=== PATIENT | female | born 1995 | race African-American/Black ===

== ENCOUNTER 2017-01-05 21:52 | Emergency (ER) | payer MEDICAID ==
[~2017-01-05] VITALS: Ht 170.2 cm; Wt 86.0 kg
[~2017-01-05 21:52] MED LIST: ZOFR4TAB3 SL
[2017-01-05 21:53] VITALS: BP 128/80; PULSE 86; RESP 14; TEMP 97.8; O2SAT 100
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
== END 2017-01-06 00:12 | disposition left against medical advice (07) ==
LOC: NEPB 21:52
DX: M54.9 Dorsalgia, unspecified (principal)
CPT/HCPCS: 99281

== ENCOUNTER 2017-05-16 08:12 | Emergency (ER) | payer MEDICAID ==
[~2017-05-16] VITALS: Ht 172.7 cm; Wt 87.0 kg
[2017-05-16 08:14] VITALS: BP 128/80; PULSE 88; RESP 20; TEMP 98.6; O2SAT 100
[2017-05-16] MEDS ORDERED: SODIUM CHLOR 0.9% 1000 ML INJ 1,000 ML IV SCH (08:39)
--- NOTE | 2017-05-16 08:42 | PD ---
HPI Chief Complaint: GI Complaint Time Seen by Provider: 08:39 Travel History International Travel<30 days: No Contact w/Intl Traveler<30days: No Traveled to known affect area: No History of Present Illness HPI 21-year-old female patient presents to the ER today for 3 days history of nausea , and lower abdominal pains. She states this started on its own and she has not been vomiting or having any diarrhea. She denies any fevers, coughing, chest pains, or any other symptoms. She denies any urinary symptoms or vaginal discharge. Modifying Factors: None Associated Signs & Symptoms: Nausea, lower abdominal discomfort Risk Factors: None PFSH Past Medical History Medical History: Denies Significant Hx Diminished Hearing: No Tetanus Vaccination: < 5 Years ?: Not LMP: 05/14/17 Past Surgical History Surgical History: No Previous Surgery Social History Alcohol Use: Yes Tobacco Use: No Substance Use: No Allergies-Medications (Allergen,Severity, Reaction): Coded Allergies: No Known Allergies (Unverified , 05/16/17) Reported Meds & Prescriptions Reported Meds & Active Scripts Active Zofran ODT (Ondansetron HCl) 4 Mg Tab 4 Mg SL Q6H PRN FOR NAUSEA/VOMITING Review of Systems Except as stated in HPI: all other systems reviewed are Neg Physical Exam Narrative GENERAL: Well-developed young -[place] female patient in mild distress. Awake and oriented 3. SKIN: Focused skin assessment warm/dry. HEAD: Atraumatic. Normocephalic. EYES: Pupils equal and round. No scleral icterus. No injection or drainage. ENT: No nasal bleeding or discharge. Mucous membranes pink and moist. NECK: Trachea midline. No JVD. CARDIOVASCULAR: Regular rate and rhythm. No murmur appreciated. RESPIRATORY: No accessory muscle use. Clear to auscultation. Breath sounds equal bilaterally. GASTROINTESTINAL: Abdomen soft, mild suprapubic tenderness without guarding or rebound, nondistended. Hepatic and splenic margins not palpable. GENITOURINARY: Normal external genitalia without lesions or erythema. Vaginal vault with with dark blood but no significant drainage. Cervical os was closed without drainage. No cervical motion tenderness. Uterus nontender and nonenlarged. Bilateral adnexa nontender without masses. MUSCULOSKELETAL: No obvious deformities. No clubbing. No cyanosis. No edema. NEUROLOGICAL: Awake and alert. No obvious cranial nerve deficits. Motor grossly within normal limits. Normal speech. PSYCHIATRIC: Appropriate mood and affect; insight and judgment normal. Data Data Last Documented VS Vital Signs Date Time Temp Pulse Resp B/P Pulse Ox O2 Delivery O2 Flow Rate FiO2 05/16/17 08:14 98.6 88 20 128/80 100 Room Air Orders Complete Blood Count With Diff (05/16/17 08:39) Comprehensive Metabolic Panel (05/16/17 08:39) Lipase (05/16/17 08:39) Urinalysis - C+S If Indicated (05/16/17 08:39) Iv Access Insert/Monitor (05/16/17 08:39) Ecg Monitoring (05/16/17 08:39) Oximetry (05/16/17 08:39) Ondansetron Inj (Zofran Inj) (05/16/17 08:45) Sodium Chlor 0.9% 1000 Ml Inj (Ns 1000 M (05/16/17 08:39) Sodium Chloride 0.9% Flush (Ns Flush) (05/16/17 08:45) Ed Urine Pregnancytest Poc (05/16/17 08:39) Gc And Chlamydia Pcr (05/16/17 09:50) Wet Prep Profile (05/16/17 09:50) Labs Laboratory Tests Test 05/16/17 08:45 White Blood Count 7.6 TH/MM3 Red Blood Count 4.06 MIL/MM3 Hemoglobin 12.6 GM/DL Hematocrit 36.5 % Mean Corpuscular Volume 89.8 FL Mean Corpuscular Hemoglobin 30.9 PG Mean Corpuscular Hemoglobin 34.4 % Concent Red Cell Distribution Width 12.7 % Platelet Count 319 TH/MM3 Mean Platelet Volume 9.2 FL Neutrophils (%) (Auto) 80.7 % Lymphocytes (%) (Auto) 10.3 % Monocytes (%) (Auto) 8.3 % Eosinophils (%) (Auto) 0.5 % Basophils (%) (Auto) 0.2 % Neutrophils # (Auto) 6.2 TH/MM3 Lymphocytes # (Auto) 0.8 TH/MM3 Monocytes # (Auto) 0.6 TH/MM3 Eosinophils # (Auto) 0.0 TH/MM3 Basophils # (Auto) 0.0 TH/MM3 CBC Comment DIFF FINAL Differential Comment Urine Color YELLOW Urine Turbidity CLEAR Urine pH 6.5 Urine Specific [place] 1.038 Urine Protein TRACE mg/dL Urine Glucose (UA) NEG mg/dL Urine Ketones NEG mg/dL Urine Occult Blood MOD Urine Nitrite NEG Urine Bilirubin NEG Urine Urobilinogen 2.0 MG/DL Urine Leukocyte Esterase NEG Urine RBC 6 /hpf Urine WBC 1 /hpf Urine Squamous Epithelial 1 /hpf Cells Urine Mucus FEW /lpf Microscopic Urinalysis Comment CULT NOT INDICATED Sodium Level 137 MEQ/L Potassium Level 3.5 MEQ/L Chloride Level 105 MEQ/L Carbon Dioxide Level 27.0 MEQ/L Anion Gap 5 MEQ/L Blood Urea Nitrogen 14 MG/DL Creatinine 0.77 MG/DL Estimat Glomerular Filtration 116 ML/MIN Rate Random Glucose 87 MG/DL Calcium Level 8.6 MG/DL Total Bilirubin 0.8 MG/DL Aspartate Amino Transf 16 U/L (AST/SGOT) Alanine Aminotransferase 16 U/L (ALT/SGPT) Alkaline Phosphatase 87 U/L Total Protein 7.4 GM/DL Albumin 3.8 GM/DL Lipase 68 U/L [facility] Medical Decision Making Medical Screen Exam Complete: Yes Emergency Medical Condition: Yes Medical Record Reviewed: Yes Interpretation(s) Laboratory Tests Test 05/16/17 08:45 Neutrophils (%) (Auto) 80.7 % (16.0-70.0) Monocytes (%) (Auto) 8.3 % (0.0-8.0) Lymphocytes # (Auto) 0.8 TH/MM3 (1.0-4.8) Urine Specific [place] 1.038 (1.002-1.035) Urine Occult Blood MOD (NEG) Urine RBC 6 /hpf (0-3) Urine Mucus FEW /lpf (OCC) Lipase 68 U/L (73-393) Differential Diagnosis Nausea, lower abdominal discomfortUTI versus gastroenteritis versus dehydration versus metabolic issues versus Narrative Course Abdomen is benign and I am not suspecting acute intra-abdominal process. Lab work shows no significant leukocytosis. Her UA shows no signs of UTI. She is not . Pelvic exam shows that she is in her menses but is otherwise unremarkable for any signs of PID or cervicitis. Cultures were sent as precaution. At this point, my plan would be to release the patient with follow- up to primary care physician. We will give her symptomatic relief for the discomfort. Return for any worsening in symptoms as necessary. The plan has been discussed with her and she states understanding. Diagnosis Primary Impression: Gastroenteritis Additional Impression: Dysmenorrhea Med/Other Pt SpecificInfo: Prescription(s) given Scripts Ondansetron Odt (Zofran Odt)4 Mg Tab4 Mg SL Q6HR PRN (Nausea/Vomiting) #7 TAB Ref 0 Prov:Syed Tolliver MD 05/16/17 Ibuprofen (Motrin Ib)200 Mg [id number] Mg PO QID PRN (PAIN SCALE 1 TO 10) #20 Prov:Syed Tolliver MD 05/16/17 Disposition: 01 DISCHARGE HOME Condition: Stable Syed Tolliver MD May 16, 2017 08:42
[2017-05-16] MEDS ORDERED: SODIUM CHLORIDE 0.9% FLUSH 10 ML FLUSH IV FLUSH PRN (08:45)
[2017-05-16] MEDS ORDERED: ONDANSETRON HCL 4 MG/2 ML VIAL IVP ONE (08:45)
[2017-05-16 09:17] LABS: AUTOMATED NEUTROPHIL # 6.2 TH/MM3 (1.8-7.7); BASOPHIL % 0.2 % (0.0-2.0); EOSINOPHIL % 0.5 % (0.0-4.0); HEMATOCRIT 36.5 % (35.0-46.0); HEMO FLAGS DIFF FINAL; LYMPH % 10.3 % (9.0-44.0); LYMPHOCYTE # 0.8 TH/MM3 (1.0-4.8); MEAN CELL VOLUME 89.8 FL (80.0-100.0); MEAN CORPUSCULAR HEMOGLOBIN 30.9 PG (27.0-34.0); MEAN CORPUSCULAR HGB CONC 34.4 % (32.0-36.0); MONO % 8.3 % (0.0-8.0); NEUT % 80.7 % (16.0-70.0); PLATELET COUNT 319 TH/MM3 (150-450); RED BLOOD COUNT 4.06 MIL/MM3 (4.00-5.30); RED CELL DISTRIBUTION WIDTH 12.7 % (11.6-17.2); WHITE BLOOD COUNT 7.6 TH/MM3 (4.0-11.0)
[2017-05-16 09:26] LABS: BLOOD, URINE MOD (NEG); COMMENT (UR) CULT NOT INDICATED; CULTURE IF INDICATED CULT NOT INDICATED; GLUCOSE,URINE NEG (NEG); KETONE, URINE NEG (NEG); MUCUS URINE FEW /lpf (OCC); NITRITE,URINE NEG (NEG); PH, URINE 6.5 (5.0-8.5); SQUAMOUS EPITHELIAL CELL URINE 1 /hpf (0-5); URINE COLOR YELLOW (YELLW/STRAW)
[2017-05-16 09:39] LABS: ANION GAP 5 MEQ/L (5-15); AST (GOT) 16 U/L (16-38); BLOOD UREA NITROGEN 14 MG/DL (7-18); CHLORIDE 105 MEQ/L (98-107); GLOMERULAR FILTRATION RATE 116 ML/MIN (>89); POTASSIUM 3.5 MEQ/L (3.5-5.1); SODIUM (NA) 137 MEQ/L (136-145)
[2017-05-16 09:40] LABS: ALT (GPT) 16 U/L (9-42)
[2017-05-16 09:42] LABS: ALKALINE PHOSPHATASE 87 U/L (45-117); TOTAL BILIRUBIN ADULT 0.8 MG/DL (0.2-1.0)
[2017-05-16 10:00] VITALS: BP 116/65
[2017-05-16] MEDS ORDERED: IBUP-1129 PO (10:07)
[2017-05-16] MEDS ORDERED: ZOFR4TAB3 SL (10:07)
[2017-05-16 14:11] LABS: CHLAMYDIA PCR NOT DETECTED (NOT DETECT); NEISSERIA PCR NOT DETECTED (NOT DETECT)
== END 2017-05-16 11:30 | disposition home or self-care (01) ==
LOC: NEPE 08:12
DX: K52.9 Noninfective gastroenteritis and colitis, unspecified (principal); N94.6 Dysmenorrhea, unspecified
CPT/HCPCS: 80053; 81001; 83690; 84703; 85025; 87210; 87491; 87591; 96361; 96374; 99284; J2405; J7030

== ENCOUNTER 2017-07-24 22:59 | Emergency (ER) | payer SELFPAY ==
[~2017-07-24] VITALS: Ht 170.2 cm; Wt 90.0 kg
[~2017-07-24 22:59] MED LIST changes: +IBUP-1129 PO
[2017-07-24 23:02] VITALS: BP 138/84; PULSE 79; RESP 16; TEMP 98.8; O2SAT 99
[2017-07-24] MEDS ORDERED: SODIUM CHLORIDE 0.9% FLUSH 10 ML FLUSH IVF PRN (23:45)
--- NOTE | 2017-07-25 00:13 | PD ---
HPI Chief Complaint: Chest Pain Time Seen by Provider: 23:39 Travel History International Travel<30 days: No Contact w/Intl Traveler<30days: No Traveled to known affect area: No History of Present Illness HPI Patient is a 22-year-old female presenting to the emergency room for evaluation of left upper chest pain. Patient states this started sometime today. She states the pain is a 7 out of 10. She reports that when she lifts up her left breast the pain increases. She denies any shortness of breath, nausea, vomiting , abdominal pain, vaginal bleeding. She reports her last menstrual cycle was June 17. She states that she took 2 tests over the last few days and they were positive. She has no related complaints. She denies any family history for early heart disease. [facility] Past Medical History Medical History: Denies Significant Hx Diminished Hearing: No Immunizations Current: Yes ?: LMP: MAY 2017 Family History Family History: Negative Social History Alcohol Use: Yes ([facility]) Tobacco Use: No Substance Use: No Allergies-Medications (Allergen,Severity, Reaction): Coded Allergies: No Known Allergies (Unverified , 07/24/17) Reported Meds & Prescriptions Reported Meds & Active Scripts Active No Active Prescriptions or Reported Medications Review of Systems Except as stated in HPI: all other systems reviewed are Neg General / Constitutional: No: Fever, Chills HENT: No: Headaches Cardiovascular: Positive: Chest Pain or Discomfort, No: Dyspnea on exertion Respiratory: No: Shortness of Breath Gastrointestinal: No: Nausea, Vomiting, Abdominal Pain Musculoskeletal: Positive: Myalgias Neurologic: No: Weakness, Dizziness, Syncope Physical Exam Narrative GENERAL: Well-developed, well-nourished, alert female. Resting comfortably in no acute distress. SKIN: Warm and dry. HEAD: Atraumatic. Normocephalic. EYES: Pupils equal and round. No scleral icterus. No injection or drainage. ENT: No nasal bleeding or discharge. Mucous membranes pink and moist. NECK: Trachea midline. No JVD. CARDIOVASCULAR: Regular rate and rhythm. RESPIRATORY: No accessory muscle use. Clear to auscultation. Breath sounds equal bilaterally. GASTROINTESTINAL: Abdomen soft, non-tender, nondistended. Hepatic and splenic margins not palpable. MUSCULOSKELETAL: Extremities without clubbing, cyanosis, or edema. No obvious deformities. NEUROLOGICAL: Awake and alert. No obvious cranial nerve deficits. Motor grossly within normal limits. Five out of 5 muscle strength in the arms and legs. Normal speech. PSYCHIATRIC: Appropriate mood and affect; insight and judgment normal. Data Data Last Documented VS Vital Signs Date Time Temp Pulse Resp B/P (MAP) Pulse Ox O2 Delivery O2 Flow Rate FiO2 07/24/17 23:02 98.8 79 16 138/84 (102) 99 Room Air Orders Orders Electrocardiogram (07/24/17 23:38) Ckmb (Isoenzyme) Profile (07/24/17 23:38) Complete Blood Count With Diff (07/24/17 23:38) Comprehensive Metabolic Panel (07/24/17 23:38) Magnesium (Mg) (07/24/17 23:38) Prothrombin Time / Inr (Pt) (07/24/17 23:38) Act Partial Throm Time (Ptt) (07/24/17 23:38) Troponin I (07/24/17 23:38) Ecg Monitoring (07/24/17 23:38) Bilateral Bp Monitoring (07/24/17 23:38) Iv Access Insert/Monitor (07/24/17 23:38) Oximetry (07/24/17 23:38) Sodium Chloride 0.9% Flush (Ns Flush) (07/24/17 23:45) CKMB (07/25/17 00:10) CKMB% (07/25/17 00:10) Labs Laboratory Tests Test 07/25/17 00:10 White Blood Count 10.9 TH/MM3 Red Blood Count 3.81 MIL/MM3 Hemoglobin 11.4 GM/DL Hematocrit 33.8 % Mean Corpuscular Volume 88.5 FL Mean Corpuscular Hemoglobin 30.0 PG Mean Corpuscular Hemoglobin Concent 33.9 % Red Cell Distribution Width 12.6 % Platelet Count 418 TH/MM3 Mean Platelet Volume 8.5 FL Neutrophils (%) (Auto) 63.8 % Lymphocytes (%) (Auto) 27.7 % Monocytes (%) (Auto) 7.3 % Eosinophils (%) (Auto) 0.7 % Basophils (%) (Auto) 0.5 % Neutrophils # (Auto) 7.0 TH/MM3 Lymphocytes # (Auto) 3.0 TH/MM3 Monocytes # (Auto) 0.8 TH/MM3 Eosinophils # (Auto) 0.1 TH/MM3 Basophils # (Auto) 0.1 TH/MM3 CBC Comment DIFF FINAL Differential Comment Prothrombin Time 10.4 SEC Prothromb Time International Ratio 0.9 RATIO Activated Partial Thromboplast Time 27.8 SEC Blood Urea Nitrogen 5 MG/DL Creatinine 0.67 MG/DL Random Glucose 85 MG/DL Total Protein 7.4 GM/DL Albumin 3.8 GM/DL Calcium Level 8.9 MG/DL Magnesium Level 2.0 MG/DL Alkaline Phosphatase 89 U/L Aspartate Amino Transf (AST/SGOT) 11 U/L Alanine Aminotransferase (ALT/SGPT) 16 U/L Total Bilirubin 0.4 MG/DL Sodium Level 136 MEQ/L Potassium Level 3.7 MEQ/L Chloride Level 105 MEQ/L Carbon Dioxide Level 24.4 MEQ/L Anion Gap 7 MEQ/L Estimat Glomerular Filtration Rate 134 ML/MIN Total Creatine Kinase 115 U/L Creatine Kinase MB 0.7 NG/ML Troponin I LESS THAN 0.02 NG/ML MDM Medical Decision Making Medical Screen Exam Complete: Yes Emergency Medical Condition: Yes Interpretation(s) Laboratory Tests Test 07/25/17 00:10 White Blood Count 10.9 TH/MM3 Red Blood Count 3.81 MIL/MM3 Hemoglobin 11.4 GM/DL Hematocrit 33.8 % Mean Corpuscular Volume 88.5 FL Mean Corpuscular Hemoglobin 30.0 PG Mean Corpuscular Hemoglobin Concent 33.9 % Red Cell Distribution Width 12.6 % Platelet Count 418 TH/MM3 Mean Platelet Volume 8.5 FL Neutrophils (%) (Auto) 63.8 % Lymphocytes (%) (Auto) 27.7 % Monocytes (%) (Auto) 7.3 % Eosinophils (%) (Auto) 0.7 % Basophils (%) (Auto) 0.5 % Neutrophils # (Auto) 7.0 TH/MM3 Lymphocytes # (Auto) 3.0 TH/MM3 Monocytes # (Auto) 0.8 TH/MM3 Eosinophils # (Auto) 0.1 TH/MM3 Basophils # (Auto) 0.1 TH/MM3 CBC Comment DIFF FINAL Differential Comment Prothrombin Time 10.4 SEC Prothromb Time International Ratio 0.9 RATIO Activated Partial Thromboplast Time 27.8 SEC Blood Urea Nitrogen 5 MG/DL Creatinine 0.67 MG/DL Random Glucose 85 MG/DL Total Protein 7.4 GM/DL Albumin 3.8 GM/DL Calcium Level 8.9 MG/DL Magnesium Level 2.0 MG/DL Alkaline Phosphatase 89 U/L Aspartate Amino Transf (AST/SGOT) 11 U/L Alanine Aminotransferase (ALT/SGPT) 16 U/L Total Bilirubin 0.4 MG/DL Sodium Level 136 MEQ/L Potassium Level 3.7 MEQ/L Chloride Level 105 MEQ/L Carbon Dioxide Level 24.4 MEQ/L Anion Gap 7 MEQ/L Estimat Glomerular Filtration Rate 134 ML/MIN Total Creatine Kinase 115 U/L Creatine Kinase MB 0.7 NG/ML Troponin I LESS THAN 0.02 NG/ML Vital Signs Date Time Temp Pulse Resp B/P (MAP) Pulse Ox O2 Delivery O2 Flow Rate FiO2 07/24/17 23:02 98.8 79 16 138/84 (102) 99 Room Air Differential Diagnosis ACS versus pleurisy versus [place] versus less likely pulmonary embolism versus musculoskeletal strain versus other Narrative Course Patient is a 22-year-old female that presented to emergency department for evaluation of left upper chest wall pain that started earlier today. Patient has no cardiac risk factors, she does not smoke and denies any family history. Patient's vital signs are stable, labs ordered and pending. Initial EKG which was reviewed by my attending physician shows normal sinus rhythm. Chest x-ray was deferred since patient is in the early stages of . She has no related complaints at this time. Labs reviewed, no acute findings identified. Discussed with my attending physician, at this time due to lack of risk factors as well as negative workup, patient will be discharged home. She was encouraged to take acetaminophen as needed and as directed for pain. She was encouraged to follow-up with her primary doctor. She was encouraged to schedule an appointment with an coremaker pipe for care. She was advised to return to emergency department immediately for any new or worsening symptoms. Diagnosis Primary Impression: Chest wall pain Referrals: System Archive Analyst Primary Care Physician Patient Instructions: Chest Wall Pain (ED), General Instructions Additional Instructions: Follow-up with your primary doctor Take [id number] acetaminophen as needed and as directed for pain Return to emergency department for any new or worsening symptoms Med/Other Pt SpecificInfo: Prescription(s) given Scripts Vit-Iron Carbonyl ( Plus Iron 29-1 mg) 29 Mg Iron-1 Mg Tab 1 TAB PO DAILY for Nutritional Supplement, #30 TAB 0 Refills Prov: Mariah Koehler 07/25/17 Disposition: 01 DISCHARGE HOME Condition: Stable Rodo,Skylarmilla HARMON Jul 25, 2017 00:13
[2017-07-25 00:27] LABS: BASOPHIL # 0.1 TH/MM3 (0-0.2); BASOPHIL % 0.5 % (0.0-2.0); EOSINOPHIL # 0.1 TH/MM3 (0-0.4); EOSINOPHIL % 0.7 % (0.0-4.0); HEMATOCRIT 33.8 % (35.0-46.0); HEMO FLAGS DIFF FINAL; LYMPH % 27.7 % (9.0-44.0); MEAN CELL VOLUME 88.5 FL (80.0-100.0); MEAN CORPUSCULAR HGB CONC 33.9 % (32.0-36.0); MONO % 7.3 % (0.0-8.0); NEUT % 63.8 % (16.0-70.0); PLATELET COUNT 418 TH/MM3 (150-450); RED BLOOD COUNT 3.81 MIL/MM3 (4.00-5.30); RED CELL DISTRIBUTION WIDTH 12.6 % (11.6-17.2); WHITE BLOOD COUNT 10.9 TH/MM3 (4.0-11.0)
[2017-07-25 00:35] LABS: APTT (PATIENT) 27.8 SEC (24.3-30.1); INTERNATIONAL NORMALIZED RATIO 0.9 RATIO; PROTHROMBIN TIME - PATIENT 10.4 SEC (9.8-11.6)
[2017-07-25 00:47] LABS: ALT (GPT) 16 U/L (10-53); ANION GAP 7 MEQ/L (5-15); AST (GOT) 11 U/L (15-37); BICARBONATE 24.4 MEQ/L (21.0-32.0); BLOOD UREA NITROGEN 5 MG/DL (7-18); CHLORIDE 105 MEQ/L (98-107); GLOMERULAR FILTRATION RATE 134 ML/MIN (>89); POTASSIUM 3.7 MEQ/L (3.5-5.1); SODIUM (NA) 136 MEQ/L (136-145)
[2017-07-25 00:52] LABS: ALKALINE PHOSPHATASE 89 U/L (45-117); CREATINE KINASE 115 U/L (26-192); TOTAL BILIRUBIN ADULT 0.4 MG/DL (0.2-1.0)
[2017-07-25 01:05] LABS: CKMB 0.7 NG/ML (0.5-3.6)
[2017-07-25] MEDS ORDERED: PREN29TA PO (01:11)
[2017-07-25 01:55] VITALS: RESP 20; O2SAT 100
[2017-07-25 02:01] VITALS: BP 113/60
--- NOTE | 2017-07-25 19:25 | EKG ---
Date Performed: 07/25/2017 Time Performed: 00:35:12 PTAGE: 22 years EKG: Sinus rhythm WITH SINUS ARRHYTHMIA NORMAL ECG INTERPRETATION BASED ON A DEFAULT AGE OF 41 YEARS NO PREVIOUS TRACING DOCTOR: Isaak Roque Interpretating Date/Time 07/25/2017 19:23:24
== END 2017-07-25 02:02 | disposition home or self-care (01) ==
LOC: NEPD 22:59
DX: R07.89 Other chest pain (principal); I49.8 Other specified cardiac arrhythmias
CPT/HCPCS: 80053; 82550; 82552; 83735; 84484; 85025; 85610; 85730; 93005; 99284

== ENCOUNTER 2017-08-13 20:41 | Emergency (ER) | payer MEDICAID ==
[~2017-08-13 20:41] MED LIST changes: -IBUP-1129 PO; +PREN29TA PO; -ZOFR4TAB3 SL
[2017-08-13 20:42] VITALS: BP 142/72; PULSE 86; RESP 15; TEMP 98.2; O2SAT 100
--- NOTE | 2017-08-13 21:14 | PD ---
HPI Chief Complaint: Abdominal Pain Time Seen by Provider: 21:10 Travel History International Travel<30 days: No Contact w/Intl Traveler<30days: No Traveled to known affect area: No History of Present Illness HPI 22-year-old female presents to the emergency department for complaint of left lower quadrant abdominal pain. Patient is noted symptoms since yesterday. Patient is 1 para 0 AB 0. Last menstrual period was June 13 and normal for her. Patient states she's been taking vitamins. Patient's had no fever or chills. Patient denies dysuria frequency urgency flank pain or hematuria. Patient's had no vaginal discharge or vaginal bleeding. No report of injury. Patient rates her pain 10 over 10 intensity. Patient has not yet established with a primary care provider or an [facility] TE[facility] for this . Patient denies any chronic medical history or surgeries. Patient took one-time dose of acetaminophen reportedly without relief. PFSH Past Medical History Narrative Medical Negative past medical history Ab0 LMP 06/13/17 no surgery; no tobacco use; nursing notes reviewed Medical History: Denies Significant Hx Diminished Hearing: No Immunizations Current: Yes Tetanus Vaccination: Unknown Influenza Vaccination: No ?: LMP: 06/13/17 Past Surgical History Surgical History: No Previous Surgery Social History Alcohol Use: Yes (OCC) Tobacco Use: No Substance Use: No Allergies-Medications (Allergen,Severity, Reaction): Coded Allergies: No Known Allergies (Unverified , 07/25/17) Reported Meds & Prescriptions Reported Meds & Active Scripts Active Plus Iron 29-1 mg ( Vit-Iron Carbonyl) 29 Mg Iron-1 Mg Tab 1 Tab PO DAILY Review of Systems Except as stated in HPI: all other systems reviewed are Neg General / Constitutional: No: Fever, Chills HENT: No: Congestion Cardiovascular: No: Chest Pain or Discomfort Respiratory: No: Shortness of Breath Gastrointestinal: Positive: Nausea, Abdominal Pain, No: Vomiting, Diarrhea Genitourinary: No: Urgency, Frequency, Dysuria, Hematuria, Pelvic Pain, Flank Pain, Discharge, Vaginal Bleeding Musculoskeletal: No: Myalgias, Arthralgias Skin: No Rash Neurologic: No: Weakness Psychiatric: No: Anxiety Hematologic/Lymphatic: No: Lymph Node Enlargement Physical Exam Narrative GENERAL: Well developed well-nourished female in acute distress respiratory distress SKIN: Warm and dry. HEAD: Normocephalic. EYES: No scleral icterus. No injection or drainage. NECK: Supple, trachea midline. No JVD or lymphadenopathy. CARDIOVASCULAR: Regular rate and rhythm without murmurs, gallops, or rubs. RESPIRATORY: Breath sounds equal bilaterally. No accessory muscle use. GASTROINTESTINAL: Abdomen soft, mild left lower quadrant tenderness to palpation without guarding or rebound, nondistended. Pelvic exam: Normal external exam no redness induration or lesions; speculum exam white mucous no blood no tissue no clots cervical os is closed; bimanual exam no cervical motion tenderness mild uterine enlargement no adnexal mass or tenderness MUSCULOSKELETAL: No cyanosis, or edema. BACK: Nontender without obvious deformity. No CVA tenderness. Data Data Last Documented VS Vital Signs Date Time Temp Pulse Resp B/P (MAP) Pulse Ox O2 Delivery O2 Flow Rate FiO2 08/14/17 01:50 08/13/17 20:42 98.2 86 15 100 Room Air Orders Orders Beta Hcg (Quant/Titer) (08/13/17 21:10) Complete Blood Count With Diff (08/13/17 21:10) Basic Metabolic Panel (Bmp) (08/13/17 21:10) Gc And Chlamydia Pcr (08/13/17 21:10) Complete Rh (08/13/17 21:10) Wet Prep Profile (08/13/17 21:10) Urinalysis - C+S If Indicated (08/13/17 21:10) Iv Access Insert/Monitor (08/13/17 21:10) Ed Urine Pregnancytest Poc (08/13/17 21:10) Us Pelvis Preg W Transvaginal (08/13/17 ) Acetaminophen (Tylenol) (08/14/17 00:00) Ed Discharge Order (08/14/17 01:48) Labs Laboratory Tests Test 08/13/17 21:15 08/13/17 21:20 08/13/17 21:40 Urine Color YELLOW Urine Turbidity HAZY Urine pH 7.5 Urine Specific [place] 1.018 Urine Protein TRACE mg/dL Urine Glucose (UA) NEG mg/dL Urine Ketones NEG mg/dL Urine Occult Blood NEG Urine Nitrite NEG Urine Bilirubin NEG Urine Urobilinogen 2.0 MG/DL Urine Leukocyte Esterase NEG Urine WBC 1 /hpf Urine Squamous Epithelial Cells 6 /hpf Urine Amorphous Sediment RARE Urine Bacteria RARE /hpf Urine Mucus FEW /lpf Microscopic Urinalysis Comment CULT NOT INDICATED White Blood Count 6.9 TH/MM3 Red Blood Count 3.76 MIL/MM3 Hemoglobin 11.4 GM/DL Hematocrit 33.6 % Mean Corpuscular Volume 89.2 FL Mean Corpuscular Hemoglobin 30.4 PG Mean Corpuscular Hemoglobin Concent 34.0 % Red Cell Distribution Width 12.6 % Platelet Count 330 TH/MM3 Mean Platelet Volume 8.9 FL Neutrophils (%) (Auto) 62.9 % Lymphocytes (%) (Auto) 18.8 % Monocytes (%) (Auto) 17.3 % Eosinophils (%) (Auto) 0.4 % Basophils (%) (Auto) 0.6 % Neutrophils # (Auto) 4.3 TH/MM3 Lymphocytes # (Auto) 1.3 TH/MM3 Monocytes # (Auto) 1.2 TH/MM3 Eosinophils # (Auto) 0.0 TH/MM3 Basophils # (Auto) 0.0 TH/MM3 CBC Comment DIFF FINAL Differential Comment Blood Urea Nitrogen 3 MG/DL Creatinine 0.65 MG/DL Random Glucose 76 MG/DL Calcium Level 8.7 MG/DL Sodium Level 135 MEQ/L Potassium Level 3.5 MEQ/L Chloride Level 103 MEQ/L Carbon Dioxide Level 25.4 MEQ/L Anion Gap 7 MEQ/L Estimat Glomerular Filtration Rate 139 ML/MIN Human Chorionic Gonadotropin, Quant 699715 MIU/ML Clue Cells (Wet Prep) NONE SEEN Vaginal Trichomonas (Wet Prep) NONE SEEN Vaginal Yeast (Wet Prep) NONE SEEN Chlamydia trachomatis DNA (PCR) NOT DETECTED Neisseria gonorrhoeae DNA (PCR) NOT DETECTED MDM Medical Decision Making Medical Screen Exam Complete: Yes Emergency Medical Condition: Yes Medical Record Reviewed: Yes Interpretation(s) O+ Urinalysis grossly within normal range CBC is automated differential values grossly within normal limits; hemoglobin 11.4 Metabolic panel within normal limits [id number] hCG positive Quantitative hCG 149,644 Ultrasound shows no evidence of ectopic shows intrauterine 9 weeks 1 day heartbeat 169 CBC & BMP Diagram 08/13/17 21:20 Calcium Level 8.7 Vital Signs Date Time Temp Pulse Resp B/P (MAP) Pulse Ox O2 Delivery O2 Flow Rate FiO2 08/13/17 20:42 98.2 86 15 142/72 (95) 100 Room Air Wet prepped: Negative Differential Diagnosis related pain, ectopic , UTI, ruptured ovarian cysts, atypical appendicitis, muscle skeletal pain, abdominal wall pain Narrative Course IV access obtained specimens collected and sent for resulting After obtaining verbal consent patient was placed supine and a curvilinear probe was placed over the lower abdomen by me; using transverse and sagittal views an intrauterine was identified with heart rate of 160. Patient is (O) positive quantitative hCG is 149,466 Pelvic/transvaginal ultrasound shows no evidence of ectopic and is consistent with intrauterine 9 weeks 1 day heart rate 169 Patient informed of lab results and ultrasound results and encouraged to continue vitamins take Tylenol as needed for minor pain and follow-up with [facility] TE[facility] and return to the emergency department for any concerns No work times one day Diagnosis Primary Impression: Qualified Codes: Z3A.09 - 9 weeks gestation of Additional Impression: Abdominal wall pain Referrals: [employer] Contact Printer call for appointment Patient Instructions: General Instructions Departure Forms: Tests/Procedures, Work Release Special Instructions: no work x 1 day Additional Instructions: Continue vitamins May take acetaminophen/Tylenol as often as every 4 hours as needed for pain greater than 5/10 intensity Increase fluid hydration Return to the emergency department for any concerns or change condition No work times one day Follow-up machinist general Disposition: 01 DISCHARGE HOME Condition: Stable Miranda Polanco MD Aug 13, 2017 21:14
[2017-08-13 21:57] LABS: AUTOMATED NEUTROPHIL # 4.3 TH/MM3 (1.8-7.7); BASOPHIL % 0.6 % (0.0-2.0); EOSINOPHIL % 0.4 % (0.0-4.0); HEMATOCRIT 33.6 % (35.0-46.0); HEMOGLOBIN 11.4 GM/DL (11.6-15.3); LYMPH % 18.8 % (9.0-44.0); LYMPHOCYTE # 1.3 TH/MM3 (1.0-4.8); MEAN CELL VOLUME 89.2 FL (80.0-100.0); MEAN CORPUSCULAR HEMOGLOBIN 30.4 PG (27.0-34.0); MEAN PLATELET VOLUME 8.9 FL (7.0-11.0); MONO % 17.3 % (0.0-8.0); MONOCYTE # 1.2 TH/MM3 (0-0.9); NEUT % 62.9 % (16.0-70.0); PLATELET COUNT 330 TH/MM3 (150-450); RED BLOOD COUNT 3.76 MIL/MM3 (4.00-5.30); RED CELL DISTRIBUTION WIDTH 12.6 % (11.6-17.2); WHITE BLOOD COUNT 6.9 TH/MM3 (4.0-11.0)
[2017-08-13 22:04] LABS: AMORPHOUS SEDIMENT, URINE RARE; BACTERIA, URINE RARE /hpf; BILIRUBIN, URINE NEG (NEG); BLOOD, URINE NEG (NEG); GLUCOSE,URINE NEG (NEG); KETONE, URINE NEG (NEG); MUCUS URINE FEW /lpf (OCC); NITRITE,URINE NEG (NEG); PH, URINE 7.5 (5.0-8.5); SQUAMOUS EPITHELIAL CELL URINE 6 /hpf (0-5); URINE COLOR YELLOW (YELLW/STRAW); URINE LEUKOCYTE ESTERASE NEG (NEG)
[2017-08-13 22:16] LABS: BICARBONATE 25.4 MEQ/L (21.0-32.0); CALCIUM 8.7 MG/DL (8.5-10.1); CREATININE 0.65 MG/DL (0.50-1.00)
--- NOTE | 2017-08-13 23:43 | RADRPT ---
EXAM DATE/TIME: 08/13/2017 23:07 [facility] COMPARISON: No previous studies available for comparison. INDICATIONS : Pelvic pain. LAB(S): Beta-hC MEDICAL HISTORY : . Alcohol use. SURGICAL HISTORY : None. ENCOUNTER: Initial ACUITY: 2 days PAIN SCORE: 5/10 LOCATION: Bilateral pelvis MEASUREMENTS: UTERUS: 10.0 x 7.1 x 6.0 cm ENDOMETRIAL STRIPE: >20 mm RIGHT OVARY: 3.4 x 2.9 x 2.3 cm LEFT OVARY: 2.3 x 2.1 x 1.7 cm FREE FLUID: No CROWN RUMP LENGTH: 2.4 = 9 WKS 1 DAYS FHR: 169 BPM FINDINGS: UTERUS: There is a single early intrauterine with small yolk sac. The crown-rump length corresponds to a 9 week one day menstrual age. A heart rate of 169 beats per minute was obtained. RIGHT OVARY: Ovary contains no mass or significant cystic lesion. LEFT OVARY: Ovary contains no mass or significant cystic lesion. MISCELLANEOUS: No free fluid. CONCLUSION: 1. Early intrauterine corresponding to a 9 week one day menstrual age. 2. The ovaries are unremarkable. Peter Sandhu MD on August 13, 2017 at 23:41 Board Certified Radiologist. This report was verified electronically.
[2017-08-14] MEDS ORDERED: ACETAMINOPHEN 325 MG TAB PO ONE
== END 2017-08-14 01:57 | disposition home or self-care (01) ==
LOC: NEPC 20:41
DX: O26.891 Other specified pregnancy related conditions, first trimester (principal); R10.2 Pelvic and perineal pain; Z3A.09 9 weeks gestation of pregnancy
CPT/HCPCS: 76801; 76817; 80048; 81001; 84702; 84703; 85025; 86901; 87210; 87491; 87591

== ENCOUNTER 2017-08-27 03:01 | Emergency (ER) | payer MEDICAID ==
[~2017-08-27] VITALS: Ht 170.2 cm; Wt 88.0 kg
[2017-08-27 03:04] VITALS: BP 128/83; PULSE 79; RESP 16; TEMP 98.6; O2SAT 100
--- NOTE | 2017-08-27 04:44 | PD ---
HPI Chief Complaint: Related Problem Time Seen by Provider: 04:23 Travel History International Travel<30 days: No Contact w/Intl Traveler<30days: No Traveled to known affect area: No History of Present Illness HPI 22yo F who is 10 weeks presents to the ED with c/o vaginal bleeding today. Denies any fever, chest pain, sob, n/v, abdominal pain, urinary complaints. PFSH Past Medical History Medical History: Denies Significant Hx Diminished Hearing: No Immunizations Current: Yes ?: Past Surgical History Surgical History: No Previous Surgery Social History Alcohol Use: No Tobacco Use: No Substance Use: No Allergies-Medications (Allergen,Severity, Reaction): Coded Allergies: No Known Allergies (Unverified Adverse Reaction, Unknown, 08/27/17) Reported Meds & Prescriptions Reported Meds & Active Scripts Active Plus Iron 29-1 mg ( Vit-Iron Carbonyl) 29 Mg Iron-1 Mg Tab 1 Tab PO DAILY Review of Systems Except as stated in HPI: all other systems reviewed are Neg Physical Exam Narrative GENERAL: 22yo F not in distress. SKIN: Focused skin assessment warm/dry. HEAD: Atraumatic. Normocephalic. EYES: Pupils equal and round. No scleral icterus. No injection or drainage. ENT: No nasal bleeding or discharge. Mucous membranes pink and moist. NECK: Trachea midline. No JVD. CARDIOVASCULAR: Regular rate and rhythm. No murmur appreciated. RESPIRATORY: No accessory muscle use. Clear to auscultation. Breath sounds equal bilaterally. GASTROINTESTINAL: Abdomen soft, non-tender, nondistended. PELVIC: No blood. Small amount of vaginal discharge. Cervical os closed. No CMT or adnexal tenderness bilaterally. MUSCULOSKELETAL: No obvious deformities. No clubbing. No cyanosis. No edema. NEUROLOGICAL: Awake and alert. No obvious cranial nerve deficits. Motor grossly within normal limits. Normal speech. PSYCHIATRIC: Appropriate mood and affect; insight and judgment normal. Data Data Last Documented VS Vital Signs Date Time Temp Pulse Resp B/P (MAP) Pulse Ox O2 Delivery O2 Flow Rate FiO2 08/27/17 07:00 72 15 120/75 (90) 100 Room Air 08/27/17 03:04 98.6 Orders Orders Complete Blood Count With Diff (08/27/17 04:40) Basic Metabolic Panel (Bmp) (08/27/17 04:40) Prothrombin Time / Inr (Pt) (08/27/17 04:40) Act Partial Throm Time (Ptt) (08/27/17 04:40) Beta Hcg (Quant/Titer) (08/27/17 04:40) Urinalysis - C+S If Indicated (08/27/17 04:40) Type And Screen (08/27/17 04:40) Gc And Chlamydia Pcr (08/27/17 06:35) Wet Prep Profile (08/27/17 06:35) Ed Urine Pregnancytest Poc (08/27/17 06:49) Labs Laboratory Tests Test 08/27/17 05:07 08/27/17 05:20 08/27/17 06:40 Urine Color YELLOW Urine Turbidity CLEAR Urine pH 6.0 Urine Specific [place] 1.016 Urine Protein NEG mg/dL Urine Glucose (UA) NEG mg/dL Urine Ketones NEG mg/dL Urine Occult Blood NEG Urine Nitrite NEG Urine Bilirubin NEG Urine Urobilinogen LESS THAN 2.0 MG/DL Urine Leukocyte Esterase NEG Urine WBC 1 /hpf Urine Squamous Epithelial Cells <1 /hpf Microscopic Urinalysis Comment CULT NOT INDICATED White Blood Count 10.3 TH/MM3 Red Blood Count 3.61 MIL/MM3 Hemoglobin 10.8 GM/DL Hematocrit 32.1 % Mean Corpuscular Volume 88.8 FL Mean Corpuscular Hemoglobin 30.0 PG Mean Corpuscular Hemoglobin Concent 33.8 % Red Cell Distribution Width 12.9 % Platelet Count 373 TH/MM3 Mean Platelet Volume 8.6 FL Neutrophils (%) (Auto) 65.8 % Lymphocytes (%) (Auto) 25.5 % Monocytes (%) (Auto) 7.5 % Eosinophils (%) (Auto) 1.0 % Basophils (%) (Auto) 0.2 % Neutrophils # (Auto) 6.8 TH/MM3 Lymphocytes # (Auto) 2.6 TH/MM3 Monocytes # (Auto) 0.8 TH/MM3 Eosinophils # (Auto) 0.1 TH/MM3 Basophils # (Auto) 0.0 TH/MM3 CBC Comment DIFF FINAL Differential Comment Prothrombin Time 10.0 SEC Prothromb Time International Ratio 0.9 RATIO Activated Partial Thromboplast Time 27.1 SEC Blood Urea Nitrogen 4 MG/DL Creatinine 0.50 MG/DL Random Glucose 81 MG/DL Calcium Level 8.3 MG/DL Sodium Level 138 MEQ/L Potassium Level 3.7 MEQ/L Chloride Level 106 MEQ/L Carbon Dioxide Level 23.7 MEQ/L Anion Gap 8 MEQ/L Estimat Glomerular Filtration Rate 188 ML/MIN Human Chorionic Gonadotropin, Quant 325836 MIU/ML Clue Cells (Wet Prep) PRESENT Vaginal Trichomonas (Wet Prep) NONE SEEN Vaginal Yeast (Wet Prep) NONE SEEN MDM Medical Decision Making Medical Screen Exam Complete: Yes Emergency Medical Condition: Yes Differential Diagnosis Threatened vs. subchorionic bleed Narrative Course 22yo F who is 10 weeks here with episode of vaginal bleeding today. Labs reviewed, no leukocytosis. H/H 10.8/32.1. bHCG [id number]. UA negative. Wet prep positive for clue cells. Will prescribe metronidazole. Pt is O positive, no rhogam needed. Bedside ultrasound showed +IUP with FHR 156 and movement. Pt has no abdominal pain. Pt is to follow up with OBGYN. Procedures Procedure Narrative Emergency Department Pelvic ultrasound was performed with patient consent. The curvilinear probe was used in the transverse and sagittal views within the suprapubic region revealing single intrauterine . heart rate was 156bpm. Diagnosis Primary Impression: Vaginal bleeding in Additional Impression: Bacterial vaginosis Patient Instructions: General Instructions Departure Forms: Tests/Procedures Additional Instructions: Please follow up with your OBGYN in 2-3 days. Return to the ED if symptoms worsen. Med/Other Pt SpecificInfo: Prescription(s) given Scripts Metronidazole (Metronidazole) 500 Mg Tab 500 MG PO BID for Infection for 7 Days, #14 TAB 0 Refills Prov: Krissy Courtney DO 08/27/17 Disposition: 01 DISCHARGE HOME Condition: Stable Krissy Courtney DO Aug 27, 2017 04:44
[2017-08-27 05:00] VITALS: BP 122/84; PULSE 70; RESP 15; O2SAT 100
[2017-08-27 05:58] LABS: AUTOMATED NEUTROPHIL # 6.8 TH/MM3 (1.8-7.7); BASOPHIL % 0.2 % (0.0-2.0); EOSINOPHIL # 0.1 TH/MM3 (0-0.4); HEMATOCRIT 32.1 % (35.0-46.0); HEMO FLAGS DIFF FINAL; LYMPH % 25.5 % (9.0-44.0); LYMPHOCYTE # 2.6 TH/MM3 (1.0-4.8); MEAN CELL VOLUME 88.8 FL (80.0-100.0); MEAN CORPUSCULAR HGB CONC 33.8 % (32.0-36.0); MONO % 7.5 % (0.0-8.0); NEUT % 65.8 % (16.0-70.0); PLATELET COUNT 373 TH/MM3 (150-450); RED BLOOD COUNT 3.61 MIL/MM3 (4.00-5.30); RED CELL DISTRIBUTION WIDTH 12.9 % (11.6-17.2); WHITE BLOOD COUNT 10.3 TH/MM3 (4.0-11.0)
[2017-08-27 06:00] VITALS: BP 112/58; PULSE 68; RESP 16; O2SAT 100
[2017-08-27 06:01] LABS: BLOOD, URINE NEG (NEG); COMMENT (UR) CULT NOT INDICATED; CULTURE IF INDICATED CULT NOT INDICATED; GLUCOSE,URINE NEG (NEG); KETONE, URINE NEG (NEG); NITRITE,URINE NEG (NEG); SQUAMOUS EPITHELIAL CELL URINE <1 /hpf (0-5); URINE COLOR YELLOW (YELLW/STRAW)
[2017-08-27 06:09] LABS: APTT (PATIENT) 27.1 SEC (24.3-30.1); INTERNATIONAL NORMALIZED RATIO 0.9 RATIO
[2017-08-27 06:23] LABS: BICARBONATE 23.7 MEQ/L (21.0-32.0); POTASSIUM 3.7 MEQ/L (3.5-5.1)
[2017-08-27 07:00] VITALS: BP 120/75; PULSE 72; RESP 15; O2SAT 100
[2017-08-27] MEDS ORDERED: METR1TAB76 PO (07:27)
[2017-08-27 12:30] LABS: CHLAMYDIA PCR NOT DETECTED (NOT DETECT); NEISSERIA PCR NOT DETECTED (NOT DETECT)
== END 2017-08-27 08:53 | disposition home or self-care (01) ==
LOC: NEPE 03:01
DX: O20.9 Hemorrhage in early pregnancy, unspecified (principal); O23.591 Infection of other part of genital tract in pregnancy, first trimester; Z3A.10 10 weeks gestation of pregnancy
CPT/HCPCS: 80048; 81001; 84702; 84703; 85025; 85610; 85730; 86850; 86900; 86901; 87210; 87491; 87591; 99283

== ENCOUNTER 2017-12-17 09:40 | Emergency (ER) | payer MEDICAID ==
[~2017-12-17 09:40] MED LIST changes: +METR1TAB76 PO
[2017-12-17 09:41] VITALS: BP 134/85; PULSE 75; RESP 16; TEMP 98.4; O2SAT 100
--- NOTE | 2017-12-17 11:00 | PD ---
HPI Chief Complaint Complaining of throwing up blood today Date Seen: Dec 17, 2017 Time Seen: 10:52 Travel History International Travel<30 Days: No Contact w/Intl Traveler<30Days: No Known Affected Area: No History of Present Illness HPI Patient is 22-year-old black female at 26 weeks he goes to the [place] [facility] and presents complaining of vomiting today and vomiting up blood with that, it was not a lot of blood she did notice that in the emesis. Patient had this about a week ago and saw her [place] doctors but nothing was really done for the problem and it went away, today has come back she had some nausea threw up and noticed blood in the toilet. Patient has no history of this is an ongoing problem she does not have a lot of nausea and vomiting with she has not had a problem with that throughout she takes no medication no antiacids no antinausea medications. She has no history in the family or herself of a bleeding problem or GI disease Crohn's disease or ulcers. heart tones are reactive for 27 weeks and there are no contractions Weeks Gestation: 26 Para: 0 : 1 History Social History Alcohol Use: No Tobacco Use: No Substance Abuse: No Allergies-Medications (Allergen,Severity, Reaction): Coded Allergies: No Known Allergies (Unverified Adverse Reaction, Unknown, 08/27/17) Home Meds Active Scripts Metronidazole (Metronidazole) 500 Mg Tab, 500 MG PO BID for Infection for 7 Days , #14 TAB 0 Refills Prov:Krissy Courtney DO 08/27/17 Vit-Iron Carbonyl ( Plus Iron 29-1 mg) 29 Mg Iron-1 Mg Tab, 1 TAB PO DAILY for Nutritional Supplement, #30 TAB 0 Refills Prov:Mariah Koehler 07/25/17 Review of Systems General / Constitutional: No: Fever, Weight Gain, Chills, Other Eyes: No: Diploplia, Blurred Vision, Visual changes, Pain, Photophobia HENT: No: Headaches, Vertigo, Lightheadedness Cardiovascular: No: Irregular Rhythm, Chest Pain or Discomfort, Palpitations, Tachycardia, Syncope, Varicosities, Edema, Cyanosis Respiratory: No: Cough, Short of Breath, Other Gastrointestinal: Nausea, Vomiting, Hematemesis, No: Diarrhea Genitourinary: No: Decreased Urinary Output, Oliguria Musculoskeletal: No: Limited ROM, Weakness, Cramping, Edema, Pain Skin: No Rash, No Itching, No Dryness, No Lumps, No Change in Pigmentation, No Change in Nails, No Alopecia, No Lesions Neurologic: No: Weakness, Dizziness, Syncope, Focal Abnormalities, Coordination Problem, Headache, Slurred Speech, Seizures Psychiatric: No: Depression, Suicidal Ideations, Homicidal Ideation Endocrine: No: Heat Intolerance, Cold Intolerance, Polydipsia, Polyuria, Other Physical Exam Vital Signs Date Time Temp Pulse Resp B/P (MAP) Pulse Ox O2 Delivery O2 Flow Rate FiO2 12/17/17 09:41 98.4 75 16 134/85 (101) 100 Room Air Narrative GENERAL: Well-nourished, well-developed patient. SKIN: Warm and dry. HEAD: Normocephalic and atraumatic. EYES: No scleral icterus. No injection or drainage. ENT: No nasal drainage noted. Mucous membranes pink. Airway patent. NECK: Supple, trachea midline. No JVD. CARDIOVASCULAR: Regular rate and rhythm without murmurs, gallops, or rubs. RESPIRATORY: Breath sounds equal bilaterally. No accessory muscle use. BREASTS: Bilateral exam showed no masses , no retractions, no nipple discharge. ABDOMEN/GI: Abdomen soft, non-tender, bowel sounds present, no rebound, no guarding Gravid to [-26] weeks size Fundal Height: [26-] GENITOURINARY: External Genitalia: intact and normal in appearance BUS glands: [-] Cervix: [Posterior-] Dilatation: [-0] Effacement: [-0] Station: [-3] Membranes: [intact] Uterine Contractions: [none-] FHT's: Category: [-1] Baseline: [122-] Reactive: [R-] Variability: [-mod] Decels: [Occasional variable-] EXTREMITIES: No cyanosis or edema. BACK: Nontender without obvious deformity. No CVA tenderness. NEUROLOGICAL: Awake and alert. Motor and sensory grossly within normal limits. Five out of 5 muscle strength in all muscle groups. Normal speech. Data Data Labs Urine dip on OB ED is negative for infection or blood MDM Interpretation(s) Patient is 22-year-old white female at 26 weeks who presents with blood in her vomit today. This seems to be an isolated incidents happened about a week or so ago once and so this is not an ongoing large issue and I doubt any further workup is needed at this time. She is following up with her OB doctors in [place]. heart tones are within normal limits and there are no contractions her cervix is closed and posterior Plan Plan for this patient is to begin a very bland diet, use Tums and other over the [id number] antacids and acid blockers such as Pepcid AC or Zantac 150 to help decrease the amount of acid in the stomach, she is to sleep with her head elevated somewhat to let gravity help decrease acid reflux, drink plenty water for hydration, and if she has persistent nausea and vomiting then she needs to begin on medication such as Phenergan or Reglan to try and decrease that issue Diagnosis Diagnosis: Primary Impression: Hematemesis/vomiting blood Additional Impression: 26 weeks gestation of Disposition: 01 DISCHARGE HOME Condition: Stable Haja Montanez II, MD Dec 17, 2017 11:00
== END 2017-12-17 11:24 | disposition home or self-care (01) ==
LOC: HOBED 09:40
DX: O99.612 Diseases of the digestive system complicating pregnancy, second trimester (principal); K92.0 Hematemesis; Z3A.26 26 weeks gestation of pregnancy
CPT/HCPCS: 99283